=== PATIENT | female | born 1965 | race Caucasian/White ===

== ENCOUNTER 2017-05-18 14:28 | Emergency (ER) | payer MEDICAID ==
[2017-05-18] MEDS ORDERED: Acetaminophen/HYDROcodone 325-5 MG Tab PO ONE ×2 (14:29→14:57)
--- NOTE | 2017-05-18 14:46 | EDM.PDOC ---
ED HPI GENERAL MEDICAL PROBLEM - General Chief Complaint: Lower Extremity Injury/Pain Stated Complaint: left knee pain Time Seen by Provider: 05/18/17 14:41 Source of Information: Reports: Patient History Limitations: Reports: No Limitations - History of Present Illness INITIAL COMMENTS - FREE TEXT/NARRATIVE: This patient is a 51 year old female that presents to the ER. Patient reports she was laying in bed today on her left side when she rolled over and had left knee pain. Patient reports she has history of chronic knee pain. She reports it felt like the knee is out of place. Patient pulses +2, cap refill <2sec, sensory intact. Patient has her knee in a flexed position. She reports it is difficult to extend the left knee due to pain. Patient is able to bear weight on LLE. Onset: Today Onset Date: 05/18/17 Location: Reports: Lower Extremity, Left Quality: Reports: Ache Severity: Mild Improves with: Reports: Immobilization Worsens with: Reports: Movement Associated Symptoms: Reports: No Other Symptoms Left Knee Pain Score (Numeric/FACES): 5 - Related Data Allergies Allergy/AdvReac Type Severity Reaction Status Date / Time No Known Allergies Allergy Verified 05/18/17 14:30 Home Meds: Home Meds Atenolol 25 mg PO BEDTIME 05/18/17 [History] Lisinopril 10 mg PO BEDTIME 05/18/17 [History] hydrOXYzine Pamoate [Vistaril] 25 mg PO BID 05/18/17 [History] rOPINIRole [Requip] 1 mg PO BEDTIME 05/18/17 [History] Review of Systems - Review of Systems Review Of Systems: See Below Constitutional: Reports: No Symptoms Eyes: Reports: No Symptoms Ears: Reports: No Symptoms Nose: Reports: No Symptoms Mouth/Throat: Reports: No Symptoms Respiratory: Reports: No Symptoms Cardiovascular: Reports: No Symptoms GI/Abdominal: Reports: No Symptoms Genitourinary: Reports: No Symptoms Musculoskeletal: Reports: Joint Pain (left knee lateral), Joint Swelling (left knee). Denies: Back Pain, Leg Pain, Foot Pain Skin: Reports: No Symptoms Neurological: Reports: No Symptoms Psychiatric: Reports: No Symptoms ED EXAM, GENERAL - Physical Exam Exam: See Below Exam Limited By: Uncooperative General Appearance: Alert, WD/WN, No Apparent Distress Neck: Normal Inspection Respiratory/Chest: No Respiratory Distress, Lungs Clear, Normal Breath Sounds, No Accessory Muscle Use Cardiovascular: Normal Peripheral Pulses, Regular Rate, Rhythm, No Edema, No Gallop, No JVD, No Murmur, No Rub Peripheral Pulses: 2+: Popliteal (L), Popliteal (R), Posterior Tibial (L), Posterior Tibial (R), Dorsalis Pedis (L), Dorsalis Pedis (R) Back Exam: Normal Inspection, Full Range of Motion Extremities: Normal Inspection, No Pedal Edema, Normal Capillary Refill, Limited Range of Motion (left knee extension due to pain), Other (Left knee lateral pain, tenderness. ). No: Joint Swelling Neurological: Alert, Oriented, Normal Cognition, No Motor/Sensory Deficits Psychiatric: Normal Affect, Normal Mood Skin Exam: Warm, Dry, Intact, Normal Color, No Rash Course - Vital Signs Last Recorded V/S: Last Vital Signs Temp 97.8 F 05/18/17 14:30 Pulse 74 05/18/17 14:30 Resp 20 05/18/17 14:30 BP 142/96 H 05/18/17 14:30 Pulse Ox 98 05/18/17 14:30 - Orders/Labs/Meds Orders: Active Orders 24 hr Category Date Time Status Knee Min 4V Lt [CR] Stat Exams 05/18/17 14:43 Ordered Acetaminophen/HYDROcodone [[place] 325-5 MG] Med 05/18/17 14:57 Once 2 tab PO ONETIME ONE Acetaminophen/HYDROcodone [Take Home: Acetaminophen/ Med 05/18/17 14:57 Once HYDROcod, 2 Tab Pack] 3 packet PO ONETIME ONE - Radiology Interpretation Free Text/Narrative:: Left knee: No fx, no dislocation, no effusion seen. Departure - Departure Time of Disposition: 14:56 Disposition: Home, Self-Care 01 Condition: Good Clinical Impression: Strain of left knee Qualifiers: Encounter type: initial encounter Qualified Code(s): S86.912A - Strain of unspecified muscle(s) and tendon(s) at lower leg level, left leg, initial encounter - Discharge Information Instructions: Crutch Use, [id number]-ca-[id number], Knee Sprain, [id number], Pain Medicine Instructions, [id number] Forms: ED Department Discharge Additional Instructions: Followup with your primary care provider Return to the ER for worsening of condition or any emergent concerns Rest ice Elevate Crutches as needed [place] 5/325m 1-2 pills every 4-6 hours as needed for pain #12 no refill; #6 take home Motrin over the counter for pain and swelling - My Orders Last 24 Hours: My Active Orders 05/18/17 14:43 Knee Min 4V Lt [CR] Stat 05/18/17 14:57 Acetaminophen/HYDROcodone [[place] 325-5 MG] 2 tab PO ONETIME ONE Acetaminophen/HYDROcodone [Take Home: Acetaminophen/HYDROcod, 2 Tab Pack] 3 packet PO ONETIME ONE - Assessment/Plan Last 24 Hours: My Active Orders 05/18/17 14:43 Knee Min 4V Lt [CR] Stat 05/18/17 14:57 Acetaminophen/HYDROcodone [[place] 325-5 MG] 2 tab PO ONETIME ONE Acetaminophen/HYDROcodone [Take Home: Acetaminophen/HYDROcod, 2 Tab Pack] 3 packet PO ONETIME ONE Plan: PLEASE SEE RN NOTE FOR PFSH.
[2017-05-18] MEDS ORDERED: Take Home: Acetaminophen/HYDROcodone 325-5 MG, 2 Tab Pack PO ONE (14:57)
[2017-05-18] MEDS ORDERED: Ketorolac 60 MG/2 ML SDV IM ONE (15:01)
== END 2017-05-18 15:20 | disposition home or self-care (01) ==
LOC: CC.ED 14:28
DX: S86.912A Strain of unspecified muscle(s) and tendon(s) at lower leg level, left leg, initial encounter (principal); X50.9XXA Other and unspecified overexertion or strenuous movements or postures, initial encounter
CPT/HCPCS: 73562; 96372; 99283; A9270; J1885

== ENCOUNTER → 2019-08-27 | Day surgery (SDC) | payer MEDICAID ==
[~2019-08-27] MED LIST: Phenylephrine 1% 10 MG/ML SDV IV ONE; Propofol 200 MG/20 ML SDV IV ONE; fentaNYL 100 MCG/2 ML SDV IV ONE
[2019-08-27] MEDS: Lactated Ringers 1,000 ML IV SCH (09:56)
--- NOTE | 2019-08-30 11:51 | OR ---
DATE OF OPERATION: 08/27/2019 PREOPERATIVE DIAGNOSIS: 1. ABDOMINAL BLOATING AND BELCHING. 2. SCREENING COLONOSCOPY. POSTOPERATIVE DIAGNOSIS: 1. DIFFUSE HEMORRHAGIC GASTRITIS WITH ULCERATION. 2. DUODENITIS. 3. COLON POLYPS X2. SURGEON: Aniceto Lamb MD PROCEDURE: 1. EGD WITH BIOPSIES X5, RAHAT. 2. FULL-LENGTH COLONOSCOPY WITH FORCEPS POLYP REMOVAL X1, SNARE POLYP REMOVAL X1. ANESTHESIA: MAC. COMPLICATIONS: None. SPECIMEN: 1. Duodenal bulb biopsy. 2. Antral biopsy x2. 3. Fundal biopsy x2. 4. Antral RAHAT. 5. Sessile polyp, sigmoid, 3 mm. 6. Tubular adenoma, rectum, greater than 0.5 cm. FINDINGS: 1. Full-length EGD. 2. Diffuse hemorrhagic gastritis with fundal ulceration. 3. Mild duodenitis. 4. Full-length colonoscopy. 5. Tubular adenoma in rectal vault, greater than 0.5 cm. 6. Small sessile polyp, sigmoid colon. RECOMMENDATIONS: The patient was to be placed on proton pump therapy. Avoidance of any NSAIDs, nicotine, caffeine, or alcohol, and consider followup EGD in 6 weeks. With regard to her colonoscopy, she should have a followup in 5 years pending path report. INDICATIONS: The patient has been having some ongoing issues with epigastric pain, belching, and bloating. Dr. Ortiz recommended a diagnostic EGD because she has never had a prior colonoscopy. He recommended a screening procedure. DESCRIPTION OF PROCEDURE: The patient was prepped and draped, placed in the left lateral decubitus position. A lubricated Olympus gastroscope was inserted over a bit, advanced to cricopharyngeus area, and easily intubated into the esophagus. The esophageal lining was benign in its entire course. The Z-line was crisp and sharp around 39 cm. There may have been a very small hernia present, but minimal spontaneous reflux seen. No distal esophagitis, stricturing, ulceration, or Mckeon's changes. The scope was advanced into the stomach through the pylorus and into the 2nd portion of the duodenum. This was benign. The duodenal bulb had some very mild duodenitis. No ulcerations. A biopsy was taken. The scope was brought back into the stomach and retroflexed. The entire gastric lining from the proximal fundus all the way through the pylorus had hemorrhagic gastritis. Two biopsies of both the fundus and antrum were taken along with a CLOtest of the antrum. She did have 1 fresh ulceration in the main body of the fundus which had some adherent clot and we did not biopsy it due to that reason. Air was then suctioned from the stomach and the scope was removed without complication. A lubricated Olympus colonoscope was then inserted and easily advanced to the cecum. Direct visualization of the ileocecal valve and appendiceal orifice was accomplished. The bowel prep was fine. Liquid stool present, but easily suctioned. Upon withdrawal, the cecum, ascending, transverse, and descending colons were completely benign. At around 45 cm in the mid sigmoid colon, the patient had a small flat sessile polyp removed in its entirety with forceps biopsy x2. This measured approximately 3 to 4 mm. The rest of the sigmoid and rectosigmoid junctions appeared unremarkable. Right in the center of the rectal vault, the patient had a stalked tubular adenoma, probably 7 to 8 mm in size, removed with a snare and pulled out through the anus with the snare. The scope was reintroduced, retroflexed. The perianal area was unremarkable. Air was then suctioned from the colon and scope removed without complication. MARISOL/ADALBERTO /[id number]
== END ==
LOC: CC.SDS 09:40
PROVIDERS: ATTEND Family Medicine
DX: Z12.11 Encounter for screening for malignant neoplasm of colon (principal); D12.8 Benign neoplasm of rectum; D12.5 Benign neoplasm of sigmoid colon; K29.80 Duodenitis without bleeding; K25.4 Chronic or unspecified gastric ulcer with hemorrhage; K29.51 Unspecified chronic gastritis with bleeding; I10 Essential (primary) hypertension; E78.5 Hyperlipidemia, unspecified; E11.9 Type 2 diabetes mellitus without complications; K21.9 Gastro-esophageal reflux disease without esophagitis; M19.90 Unspecified osteoarthritis, unspecified site; Z88.1 Allergy status to other antibiotic agents; Z79.899 Other long term (current) drug therapy
CPT/HCPCS: 43239; 45385; 87081; J2370; J2704; J3010; J7120

== ENCOUNTER 2020-01-02 09:47 | Emergency (ER) | payer MEDICAID ==
--- NOTE | 2020-01-02 10:11 | EDM.PDOC ---
ED HPI GENERAL MEDICAL PROBLEM - General Chief Complaint: General Stated Complaint: infection to back incision? Time Seen by Provider: 01/02/20 09:59 Source of Information: Reports: Patient History Limitations: Reports: No Limitations - History of Present Illness INITIAL COMMENTS - FREE TEXT/NARRATIVE: Patient to the emergency department where she advises that she has had some drainage to surgical site in the lumbar area, the patient had surgery 3 weeks ago and had padmaja removed last Friday. The patient denies any fever chills she denies any other symptoms she does advise that her back is feeling much better. The patient advises that she was placed on Ceftin and still has another day of that medication. Denies any other symptoms Onset: Gradual Duration: Day(s): Location: Reports: Back (Lumbar incision) Quality: Denies: Ache, Burning, Pressure, Sharp, Stabbing, Throbbing Severity: Mild Improves with: Reports: None Worsens with: Reports: None Associated Symptoms: Denies: Chest Pain, Fever/Chills, Headaches, Nausea/Vomiting, Shortness of Breath, Weakness Treatments CHIEF SCIENTIST: Reports: Other (see below) (As above) Lower Back Pain Score (Numeric/FACES): 5 - Related Data Allergies Allergy/AdvReac Type Severity Reaction Status Date / Time levofloxacin [From Levaquin] Allergy Other Verified 01/02/20 09:50 Home Meds: Home Meds Lisinopril 10 mg PO BEDTIME 05/18/17 [History] atenoloL [Atenolol] 25 mg PO BEDTIME 05/18/17 [History] hydrOXYzine Pamoate [Vistaril] 25 mg PO BID 05/18/17 [History] rOPINIRole [Requip] 1 mg PO BEDTIME 05/18/17 [History] Cefuroxime Axetil [Ceftin] 500 mg PO BID 01/02/20 [History] Past Medical History Cardiovascular History: Reports: Hypertension Musculoskeletal History: Reports: Other (See Below) Other Musculoskeletal History: restless legs, leg cramps Neurological History: Reports: Other (See Below) Other Neuro History: spinal stenosis - Infectious Disease History Infectious Disease History: Reports: None - Past Surgical History GI Surgical History: Reports: Cholecystectomy Neurological Surgical History: Reports: Laminectomy, Lumbar Spine Musculoskeletal Surgical History: Reports: Other (See Below) Other Musculoskeletal Surgeries/Procedures:: right end of clavicle removed, left cervical rib removal. Social & Family History - Tobacco Use Smoking Status *Q: Never Smoker - Caffeine Use Caffeine Use: Reports: Coffee - Recreational Drug Use Recreational Drug Use: No ED ROS GENERAL - Review of Systems Review Of Systems: See Below Constitutional: Reports: No Symptoms. Denies: Fever, Chills HEENT: Reports: No Symptoms Respiratory: Reports: No Symptoms. Denies: Shortness of Breath Cardiovascular: Reports: No Symptoms. Denies: Chest Pain Endocrine: Reports: No Symptoms GI/Abdominal: Reports: No Symptoms. Denies: Abdominal Pain, Nausea, Vomiting : Reports: No Symptoms. Denies: Dysuria Musculoskeletal: Reports: No Symptoms. Denies: Neck Pain, Back Pain Skin: Reports: Other (Drainage from lumbar incision) Neurological: Reports: No Symptoms. Denies: Numbness, Tingling Psychiatric: Reports: No Symptoms Hematologic/Lymphatic: Reports: No Symptoms ED EXAM, GENERAL - Physical Exam Exam: See Below Exam Limited By: No Limitations General Appearance: Alert, WD/WN, No Apparent Distress Ears: Normal External Exam Nose: Normal Inspection Throat/Mouth: Normal Inspection, Normal Voice, No Airway Compromise Head: Atraumatic, Normocephalic Neck: Normal Inspection, Supple, Non-Tender, Full Range of Motion Respiratory/Chest: No Respiratory Distress, Lungs Clear, Normal Breath Sounds Cardiovascular: Normal Peripheral Pulses, Regular Rate, Rhythm, No Murmur Peripheral Pulses: 2+: Radial (L) Back Exam: Normal Inspection, Full Range of Motion, Other (The patient does have a healing lumbar incision but does have some sanguinous type drainage, there is no redness and no foul odor) Extremities: Normal Inspection, Normal Range of Motion, Non-Tender, Normal Capillary Refill Neurological: Alert, Oriented, Normal Cognition, Normal Gait, No Motor/Sensory Deficits Psychiatric: Normal Affect, Normal Mood Skin Exam: Warm, Dry, Intact, Normal Color, No Rash, Other (As above) Course - Vital Signs Text/Narrative:: The patient was evaluated in the emergency department, it appears that the patient has a seroma, the patient advised that it really started draining last night and is decreased today. The patient does have one other day of Ceftin in which I think that would be sufficient as there is no signs and symptoms of any type of infection at this point. The patient's past follow-up family doctor and/or operating surgeon as scheduled. She is to return to the emergency department sooner if worse or any problems Last Recorded V/S: Last Vital Signs Temp 36.1 C 01/02/20 09:47 Pulse 86 01/02/20 09:47 Resp 18 01/02/20 09:47 BP 117/74 01/02/20 09:47 Pulse Ox 97 01/02/20 09:47 Departure - Departure Time of Disposition: 10:10 Disposition: Home, Self-Care 01 Condition: Good Clinical Impression: Seroma after procedure - Discharge Information *PRESCRIPTION DRUG MONITORING PROGRAM REVIEWED*: Not Applicable *COPY OF PRESCRIPTION DRUG MONITORING REPORT IN PATIENT PRANAV: Not Applicable Additional Instructions: Keep the wound clean and dry Follow-up with your operating surgeon as scheduled See your family doctor this week for reevaluation Continue all your current medications Return to emergency department sooner if worsening problems Sepsis Event Note (ED) - Evaluation Sepsis Screening Result: No Definite Risk - Focused Exam Vital Signs: Vital Signs Temp Pulse Resp BP Pulse Ox 01/02/20 09:47 36.1 C 86 18 117/74 97 - Problem List & Annotations (1) Seroma after procedure SNOMED Code(s): 917533393830564 Code(s): [id number] - Status: Acute Priority: Medium - Problem List Review Problem List Initiated/Reviewed/Updated: Yes - Assessment/Plan Plan: As above
== END 2020-01-02 10:15 | disposition home or self-care (01) ==
LOC: CC.ED 09:47
DX: L76.34 Postprocedural seroma of skin and subcutaneous tissue following other procedure (principal); I10 Essential (primary) hypertension; Z79.899 Other long term (current) drug therapy; Z88.8 Allergy status to other drugs, medicaments and biological substances
CPT/HCPCS: 99283